=== PATIENT | male | born 1955 | race Caucasian/White ===

== ENCOUNTER 2024-04-17 23:25 | Emergency (ER) | payer BC ==
[2024-04-17] MEDS ORDERED: Sodium Chloride 0.9% 10 ML Syringe FLUSH PRN (23:51)
[2024-04-18 00:02] LABS: BASOPHILS PERCENT AUTO 0.4 % (0.0-1.0); HEMATOCRIT 48.1 % (42.0-52.0); HEMOGLOBIN 16.9 gm/dl (14.0-18.0); IMMATURE GRAN ABSOLUTE AUTO 0.02 K/mm3 (0.00-0.05); IMMATURE GRAN PERCENT AUTO 0.4 % (0.0-0.4); LYMPHOCYTES ABSOLUTE AUTO 0.5 K/mm3 (1.0-4.8); LYMPHOCYTES PERCENT AUTO 10.5 % (24.0-44.0); MEAN CORPUSCULAR HEMOGLOBIN 32.6 pg (28.0-32.0); MEAN CORPUSCULAR HGB CONC 35.1 g/dl (32.0-36.0); MEAN CORPUSCULAR VOLUME 92.9 fl (83.0-99.0); MEAN PLATELET VOLUME 11.9 fl (9.4-12.4); MONOCYTES ABSOLUTE AUTO 0.7 K/mm3 (0.0-0.8); MONOCYTES PERCENT AUTO 15.1 % (0.0-8.0); NEUTROPHILS ABSOLUTE AUTO 3.5 K/mm3 (1.8-7.7); NEUTROPHILS PERCENT AUTO 73.6 % (41.0-71.0); PLATELET COUNT,PLT 51 K/mm3 (150-400); RED BLOOD CELL COUNT 5.18 M/mm3 (4.52-5.90); WHITE BLOOD CELL COUNT,WBC 4.76 K/mm3 (3.9-11.3)
[2024-04-18] MEDS: Sodium Chloride 0.9% 10 ML Syringe FLUSH ONE ×2 (00:18→02:14)
[2024-04-18] MEDS: Iopamidol 755 Mg/ML 100 ML Bottle IVPUSH ONE ×2 (00:18→02:15)
[2024-04-18] MEDS: Sodium Chloride 0.9% 100 ML IV SCH ×2 (00:18→02:14)
[2024-04-18 00:23] LABS: INR 1.23; PROTHROMBIN TIME 12.9 SECONDS (9.7-12.0)
[2024-04-18 00:24] LABS: PTT,PARTIAL THROMBOPLSTIN TIME 27.1 SECONDS (21.7-31.4)
[2024-04-18 00:30] LABS: A/G RATIO 0.9 (1-2); ALANINE AMINOTRANSFERASE,ALT 73 U/L (16-63); ALBUMIN 3.9 g/dl (3.4-5.0); ALKALINE PHOSPHATASE 74 U/L (46-116); ASPARTATE AMNIOTRANSFERASE,AST 68 U/L (15-37); BILIRUBIN TOTAL 1.2 mg/dL (0.2-1.0); BLOOD UREA NITROGEN,BUN 8 mg/dL (7-18); BUN/CREATININE RATIO 8.9 (14-18); CALCIUM 8.7 mg/dL (8.5-10.1); CARBON DIOXIDE,CO2 23 mEq/L (21-32); CHLORIDE,CL 94 mEq/L (98-107); CREATININE 0.9 mg/dL (0.7-1.3); EST CRCL DRUG DOSING (CG) 90.01 mL/min; ESTIMATED GFR 94 mL/min (>60); GLUCOSE RANDOM 158 mg/dL (70-99); PROTEIN TOTAL,TP 8.1 g/dl (6.4-8.2); SODIUM,NA 127 mEq/L (136-145)
[2024-04-18 00:56] LABS: TROPONIN I HIGH SENSITIVITY < 4 pg/mL (<=76)
[2024-04-18] MEDS: Sodium Chloride 0.9% 1,000 ML IV ONE (02:15)
== END 2024-04-18 03:55 | disposition home or self-care (01) ==
LOC: JD.ED 23:25
DX: R55 Syncope and collapse (principal)
CPT/HCPCS: 36415; 70450; 70496; 70498; 71275; 80053; 82947; 84484; 85025; 85379; 85610; 85730; 87428; 93005; 93246; 96360; 99284; J7030; Q9967; 93010